=== PATIENT | female | born 1970 | race African-American/Black ===

== ENCOUNTER 2017-08-26 07:06 | Day surgery (SDC) | payer OTHER ==
[2017-08-26] MEDS ORDERED: FENTAnyl 50 MCG/ML VIAL ×2 (08:55→10:20)
[2017-08-26] MEDS ORDERED: PROPOFOL 20 ML (08:57)
[2017-08-26] MEDS ORDERED: LIDOCAINE 100 MG SYRINGE (08:57)
[2017-08-26] MEDS ORDERED: MIDAZOLAM 1 MG/ML 2 ML INJ ×3 (08:57→10:13)
[2017-08-26] MEDS ORDERED: ONDANSETRON 4 MG INJ (08:58)
[2017-08-26] MEDS ORDERED: METOCLOPRAMIDE 10 MG INJ (08:58)
[2017-08-26] MEDS ORDERED: SUCCINYLCHOLINE CHLORIDE 100 MG/5 ML SYG IV (09:34)
[2017-08-26] MEDS ORDERED: METHYLENE BLUE 1% 10 ML INJ (09:43)
[2017-08-26] MEDS ORDERED: METOPROLOL 5 MG INJ (10:17)
[2017-08-26] MEDS ORDERED: CIPROFLOXACIN 400MG/D5W 200 ML (10:18)
[2017-08-26] MEDS: BUPIVACAINE 0.5%/EPI (SDV) 30 ML INJ (10:23)
[2017-08-26] MEDS ORDERED: ONDANSETRON 4 MG INJ IV (10:30)
[2017-08-26] MEDS ORDERED: OXYCODONE/ACETAMINOPHEN (5/325) TAB PO ×2 (10:30)
[2017-08-26] MEDS ORDERED: morphine 2 MG INJ IV (10:30)
[2017-08-26] MEDS ORDERED: KETOROLAC 15 MG INJ IV (11:00)
[2017-08-26] MEDS ORDERED: LABETALOL HCL 20MG INJ IV (11:00)
[2017-08-26] MEDS ORDERED: HYDROmorphONE (0.2 MG/ML) 10ML SYG IV ×2 (11:00)
[2017-08-26] MEDS ORDERED: hydrALAzine 20 MG INJ IV (11:00)
[2017-08-26] MEDS ORDERED: FENTAnyl 50 MCG/ML VIAL IV ×2 (11:00)
[2017-08-26] MEDS ORDERED: DIPHENHYDRAMINE 50 MG INJ IV (11:00)
== END 2017-08-26 13:30 | disposition home or self-care (01) ==
LOC: SDS 07:06
DX: L05.91 Pilonidal cyst without abscess (principal)
CPT/HCPCS: 11770; 84703; 88304